=== PATIENT | female | born 1995 | race Caucasian/White ===

== ENCOUNTER → 2020-06-20 | Outpatient (CLI) | payer BC, OTHER | LOC: HEART 5 05-09 10:00 | DX: R00.2 Palpitations (principal); I07.1 Rheumatic tricuspid insufficiency | CPT/HCPCS: 93306 ==

== ENCOUNTER → 2020-11-07 | Outpatient (CLI) | payer BC, OTHER ==
[~2020-11-07] MED LIST: CEFDINIR300 MG PO
== END ==
LOC: KOH-I 08:15
DX: G93.0 Cerebral cysts (principal); G43.709 Chronic migraine without aura, not intractable, without status migrainosus
CPT/HCPCS: 70551

== ENCOUNTER 2020-12-17 15:13 | Emergency (ER) | payer BC ==
[2020-12-17] MEDS ORDERED: CEFDINIR300 MG PO (16:20)
== END 2020-12-17 16:27 | disposition home or self-care (01) ==
LOC: ER1 15:13
DX: H66.91 Otitis media, unspecified, right ear (principal); R05 Cough; Z20.822 Contact with and (suspected) exposure to COVID-19; Z90.49 Acquired absence of other specified parts of digestive tract
CPT/HCPCS: 99284; U0002

== ENCOUNTER → 2021-01-26 | Outpatient (CLI) | payer BC | LOC: KOH-I 01-25 10:00 | DX: J32.9 Chronic sinusitis, unspecified (principal); J33.8 Other polyp of sinus | CPT/HCPCS: 70486 ==

== ENCOUNTER → 2021-03-24 | Outpatient (CLI) | payer BC | LOC: KOH-I 10:28 | DX: S59.902A Unspecified injury of left elbow, initial encounter (principal) | CPT/HCPCS: 73080 ==

== ENCOUNTER → 2021-07-18 | Outpatient (CLI) | payer BC | LOC: LAB 10:29 | DX: R07.81 Pleurodynia (principal) | CPT/HCPCS: 36415; 85379 ==

== ENCOUNTER → 2021-11-14 | Outpatient (CLI) | payer OTHER ==
[2021-11-14 12:29] LABS: HEMOGLOBIN 15.5 gm/dl (12.3-15.3); RED BLOOD COUNT 5.08 M/UL (4.00-5.10)
[2021-11-14 12:47] LABS: BUN/CREATININE RATIO 19 (0-10)
== END ==
LOC: LAB 11:54
PROVIDERS: Nurse Practitioner Family
DX: R10.813 Right lower quadrant abdominal tenderness (principal); N93.9 Abnormal uterine and vaginal bleeding, unspecified; R19.7 Diarrhea, unspecified
CPT/HCPCS: 36415; 80048; 84443; 85025